=== PATIENT | male | born 1990 | race Caucasian/White ===

== ENCOUNTER 2021-11-13 00:20 | Emergency (ER) | payer BC ==
[~2021-11-13] VITALS: Ht 167.6 cm; Wt 71.0 kg
[2021-11-13 00:36] VITALS: BP 125/84
== END 2021-11-13 01:12 | disposition left against medical advice (07) ==
LOC: ER 00:20
DX: Z53.21 Procedure and treatment not carried out due to patient leaving prior to being seen by health care provider (principal); R10.10 Upper abdominal pain, unspecified